=== PATIENT | male | born 1960 | race Caucasian/White ===

== ENCOUNTER 2020-03-29 22:28 | Emergency (ER) | payer MEDICAID ==
--- NOTE | 2020-03-29 22:57 | ER Document Report ---
ED Medical Screen (RME) - General Chief Complaint: Rib Pain Stated Complaint: POSSIBLE BROKEN RIB/DIFFICULTY BREATHING Time Seen by Provider: 03/29/20 22:56 Mode of Arrival: Ambulatory Information source: Patient Notes: 59-year-old male presented to ED for complaint of right rib pain. He states about a week ago in [place] he fell and broke some of his ribs. He states he had a collapsed lung at that time. He states today he turned around and coughed and he also he felt a pop and his pain is been much worse again. His vital signs are stable his O2 sat was 100%. He does have respirations of 22. He is alert oriented respirations regular nonlabored speaking in full sentences. He does state he smokes a pack a day and has not drank in a couple months. I have greeted and performed a rapid initial assessment of this patient. A comprehensive ED assessment and evaluation of the patient, analysis of test results and completion of medical decision making process will be conducted by an additional ED providers. Physical Exam - Vital signs Vitals: Temp Pulse Resp BP Pulse Ox 98.2 F 96 22 H 117/81 100 03/29/20 22:54 03/29/20 22:54 03/29/20 22:54 03/29/20 22:54 03/29/20 22:54 Course - Vital Signs Vital signs: Temp Pulse Resp BP Pulse Ox 98.2 F 96 22 H 117/81 100 03/29/20 22:54 03/29/20 22:54 03/29/20 22:54 03/29/20 22:54 03/29/20 22:54
--- NOTE | 2020-03-29 23:29 | RADIOLOGY REPORT (SQ) ---
EXAM DESCRIPTION: XR CHEST 2 VIEWS COMPLETED DATE/TME: 03/29/2020 23:00 CLINICAL HISTORY: 59 years, Male, States broken ribs right last week, short of breath COMPARISON: None. NUMBER OF VIEWS: TECHNIQUE: LIMITATIONS: None. FINDINGS: I cannot identify an acute rib fracture. There is an old fracture of the left sixth rib. No evidence of pulmonary infiltrate or pleural effusion. No evidence of pneumothorax. The heart and mediastinum are unremarkable. Pulmonary vascularity appears normal. IMPRESSION: No acute finding. copyright 2010 [employer]- All Rights Reserved
[2020-03-29 23:31] LABS: ABSOLUTE BASOPHILS # (AUTO) 0.1 10^3/uL (0.0-0.2); ABSOLUTE EOSINOPHILS # (AUTO) 0.3 10^3/uL (0.0-0.6); ABSOLUTE LYMPHOCYTES (AUTO) 2.3 10^3/uL (0.5-4.7); ABSOLUTE MONOCYTES (AUTO) 1.3 10^3/uL (0.1-1.4); ABSOLUTE NEUT (AUTO) 4.2 10^3/uL (1.7-8.2); BASOPHILS % (AUTO) 1.2 % (0-2); EOSINOPHILS % (AUTO) 3.7 % (0-6); HEMATOCRIT 40.9 % (37.9-51.0); HEMOGLOBIN 14.5 g/dL (13.5-17.0); LYMPHOCYTES % (AUTO) 27.9 % (13-45); MEAN CORPUSCULAR HEMOGLOBIN 34.3 pg (27.0-33.4); MEAN CORPUSCULAR HGB CONC 35.5 g/dL (32.0-36.0); MEAN CORPUSCULAR VOLUME 97 fl (80-97); MONOCYTES % (AUTO) 15.3 % (3-13); PLATELET COUNT 329 10^3/uL (150-450); RED BLOOD COUNT 4.23 10^6/uL (4.35-5.55); RED CELL DISTRIBUTION WIDTH 15.1 % (11.5-14.0); SEGMENTED NEUTROPHILS % (AUTO) 51.9 % (42-78); TOTAL CELLS COUNTED % (AUTO) 100 %; WHITE BLOOD COUNT 8.2 10^3/uL (4.0-10.5)
[2020-03-29 23:40] LABS: INTERNATIONAL RATION (INR) 1.03; PROTHROMBIN TIME 13.8 SEC (11.4-15.4)
[2020-03-29 23:41] LABS: PARTIAL THROMBOPLASTIN TIME 30.4 SEC (23.5-35.8)
[2020-03-29 23:50] LABS: ALBUMIN 4.6 g/dL (3.5-5.0); ALKALINE PHOSPHATASE 102 U/L (38-126); ANION GAP 8 (5-19); ASPARTATE AMINO TRANSFERASE 70 U/L (17-59); BILIRUBIN,DIRECT 0.4 mg/dL (0.0-0.4); BILIRUBIN,TOTAL 0.6 mg/dL (0.2-1.3); BLOOD UREA NITROGEN 6 mg/dL (7-20); CALCIUM 9.5 mg/dL (8.4-10.2); CARBON DIOXIDE 27 mmol/L (22-30); CHLORIDE 91 mmol/L (98-107); GLUCOSE 98 mg/dL (75-110); POTASSIUM 3.8 mmol/L (3.6-5.0); TOTAL PROTEIN 7.8 g/dL (6.3-8.2)
[2020-03-29] MEDS ORDERED: OXYCODONE-ACETAMINOPHEN 5-325 MG TABLET PO ONE (23:52)
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
[2020-03-30 01:02] VITALS: BP 136/84
== END 2020-03-30 01:01 | disposition home or self-care (01) ==
LOC: ER 22:28
DX: R07.81 Pleurodynia (principal); R06.00 Dyspnea, unspecified; F17.200 Nicotine dependence, unspecified, uncomplicated
CPT/HCPCS: 36415; 71046; 80053; 85025; 85610; 85730; 99284